=== PATIENT | female | born 1965 ===

== ENCOUNTER 2016-07-01 11:45 | Outpatient (CLI) | payer OTHER ==
--- NOTE | 2016-07-01 16:32 | Mammography Report ---
BILATERAL DIGITAL SCREENING MAMMOGRAM : 07/01/16 11:45:00 CLINICAL: Routine screening. COMPARISON:None available. FINDINGS: The breasts are heterogeneously dense, which may obscure small masses and limit the sensitivity of mammography.No mass, architectural distortion or suspicious calcifications. IMPRESSION: No mammographic evidence of malignancy. BI-RADS CATEGORY: 1 -- Negative RECOMMENDATION: Routine mammographic screening in one year. COMMENT: Patient follow-up letters are generated by our [employer] application.
== END 2016-07-01 11:46 | disposition home or self-care (01) ==
LOC: SPVWC 11:45
PROVIDERS: ATTEND Specialist
DX: Z12.31 Encounter for screening mammogram for malignant neoplasm of breast (principal)
CPT/HCPCS: 77067; G0202